=== PATIENT | female | born 1980 | race Two or more races ===

== ENCOUNTER 2017-12-21 09:06 | Emergency (ER) | payer OTHER ==
[~2017-12-21] VITALS: Ht 162.6 cm; Wt 56.7 kg
[2017-12-21 09:12] VITALS: BP 96/59; Ht 162.6 cm; Wt 56.7 kg
== END 2017-12-21 10:21 | disposition home or self-care (01) ==
LOC: ED 09:06
DX: S01.01XA Laceration without foreign body of scalp, initial encounter (principal); W18.09XA Striking against other object with subsequent fall, initial encounter; Y93.89 Activity, other specified; Y92.89 Other specified places as the place of occurrence of the external cause; Y99.8 Other external cause status
CPT/HCPCS: J2001

== ENCOUNTER 2018-03-03 22:03 | Emergency (ER) | payer OTHER ==
[~2018-03-03] VITALS: Ht 157.5 cm; Wt 56.7 kg
[2018-03-03 22:10] VITALS: Ht 157.5 cm; Wt 56.7 kg
[2018-03-03 22:32] LABS: CALCIUM 8.2 mg/dL (8.5-10.1); CARBON DIOXIDE 22.9 mmol/L (21-32); CHLORIDE SERUM 105 mmol/L (98-107); CREATININE SERUM 0.7 mg/dL (0.6-1.0); GFR1 > 60 mL/min; GLUCOSE SERUM 127 mg/dL (74-106); POTASSIUM SERUM 3.3 mmol/L (3.5-5.1); SODIUM SERUM 140 mmol/L (136-145)
[2018-03-03 22:33] LABS: BASOPHIL % 0.5 % (0-2); PLATELET COUNT 278 x10^3mcL (130-400)
[2018-03-03 22:38] LABS: ALBUMIN 3.9 g/dL (3.4-5.0); ALKALINE PHOSPHATASE 62 U/L (46-116); ALT/SGPT 19 U/L (14-59); AST/SGOT 20 U/L (15-37); TOTAL PROTEIN, SERUM 8.2 g/dL (6.4-8.2)
[2018-03-03 22:40] LABS: RED CELL DISTRIBUTION WIDTH 18.2 % (11.5-14.5)
[2018-03-03 22:53] LABS: BILIRUBIN TOTAL 0.1 mg/dL (0.20-1.00)
[2018-03-04 02:10] VITALS: BP 98/62
== END 2018-03-04 02:11 | disposition left against medical advice (07) ==
LOC: ED 22:03
PROVIDERS: Emergency Medicine
DX: F10.129 Alcohol abuse with intoxication, unspecified (principal); R56.9 Unspecified convulsions; R11.10 Vomiting, unspecified
CPT/HCPCS: G0480; J7030